=== PATIENT | female | born 2005 | race Two or more races ===

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

== ENCOUNTER 2025-03-04 07:17 | Emergency (ER) | payer MEDICAID, OTHER ==
[~2025-03-04] VITALS: Ht 152.4 cm; Wt 78.5 kg
[2025-03-04 07:27] VITALS: TEMP 98.6
--- NOTE | 2025-03-04 08:12 | ED.PDOC ---
SOB-HPI HPI Comments 19 y.o female presents to the ED for a chief complaint of a productive cough associated with yellow phlegm and SOB that started one week ago. Patient reports when having coughing fits, notices yellow sputum output and described chest discomfort as if her chest was compressed. Additionally, she reports feeling SOB and presented to the ED with SPO2 of 94% RA. When she lays flat, states she begins to wheeze and hears crackling sounds. She also had a cough earlier this week however has resolved. She denies any recent travel outside of the country, sick contact exposure, , fever, leg swelling, fever, chills, nausea, or vomiting. Chief Complaint: Cough Time Seen by MD: 08:08 Primary Care Provider: VICENTE Reviewed notes: Nurses Notes, Medications, Allergies Information Source: Patient Mode of Arrival: Ambulatory Severity: Moderate Timing: Weeks (1) Duration: Since onset Context: At Rest PE Risk Factors: None History of: None Modifying Factors: Nothing Associated Signs and Symptoms: Cough If cough with SOB: Yellow Past Medical History PAST MEDICAL HISTORY: Denies Surgical History: Denies all surgeries IMMIGRATION OFFICER History: No Pertinent IMMIGRATION OFFICER History Family History Family History: Reviewed,noncontributory to illness, Unknown Social History Smoker: Non-Smoker Alcohol: Denies ETOH Use Drugs: Denies Drug Use Lives In: Home Constitutional: denies: chills, diaphoresis, fatigue, fever, malaise, sweats, weakness, others EENTM: reports: throat pain; denies: blurred vision, double vision, ear bleeding, ear discharge, ear drainage, ear pain, ear ringing, eye pain, eye redness, hearing loss, mouth pain, mouth swelling, nasal discharge, nose bleeding, nose congestion, nose pain, photophobia, tearing, throat swelling, voice changes, others Respiratory: reports: cough, SOB at rest, shortness of breath; denies: hemoptysis, orthopnea, SOB with excertion, stridor, wheezing, others Cardiovascular: denies: chest pain, dizzy spells, diaphoresis, Dyspnea on exertion, edema, irregular heart beat, left arm pain, lightheadedness, palpitations, PND, syncope, others Gastrointestinal: denies: abdomen distended, abdominal pain, blood streaked bowels, constipated, diarrhea, dysphagia, difficulty swallowing, hematemesis, melena, nausea, poor appetite, poor fluid intake, rectal bleeding, rectal pain, vomiting, others Genitourinary: denies: abnormal vagina bleeding, burning, dyspareunia, dysuria, flank pain, frequency, hematuria, incontinence, pain, , vagina discharge, urgency, others Neurological: denies: dizziness, fainting, headache, left sided numbness, left sided weakness, numbness, paresthesia, pre-existing deficit, right sided numbness, right sided weakness, seizure, speech problems, tingling, tremors, weakness, others Musculoskeletal: denies: back pain, gout, joint pain, joint swelling, muscle pain, muscle stiffness, neck pain, others Integumetry: denies: bruises, change in color, change in hair/nails, dryness, laceration, lesions, lumps, rash, wounds, others Allergic/Immunocompromised: denies: Difficulty Healing, Frequent Infections, Hives, Itching, others Hematologic/Lymphatic: denies: anemia, blood clots, easy bleeding, easy bruising, swollen glands, others Endocrine: denies: excessive hunger, excessive sweating, excessive thirst, excessive urination, flushing, intolerance to cold, intolerance to heat, unexplained weight gain, unexplained weight loss, others Psychiatric: denies: anxiety, bipolar disorder, depression, hopeless, panic disorder, schizophrenia, sleepless, suicidal, others All Other Systems: Reviewed and Negative Physical Exam General Appearance: Mild Distress, Other (Speaking in short sentences appears to have difficulty breathing. Saturating 94% on room air) HEENT: Normal ENT Inspection, Pharynx Normal, TMs Normal Neck: Full Range of Motion, Non-Tender, Normal, Normal Inspection Respiratory: Decreased Breath Sounds, Respiratory Distress, Wheezing, Other (Mild wheezing to the bases and decreased breath sounds) Cardiovascular: No Edema, No JVD, No Murmur, No Gallop, Normal Peripheral Pulses, Regular Rate/Rhythm Breast Exam: Deferred Gastrointestinal: No Organomegaly, Non Tender, No Pulsatile Mass, Normal Bowel Sounds, Soft Genitalia: Deferred Pelvic: Deferred Rectal: Deferred Extremities: No calf tenderness, Normal capillary refill, Normal inspection, Normal range of motion, Non-tender, No pedal edema Musculoskeletal : Apperance: Normal Neurologic: Alert, patient placement coordinator II-XII nml as Tested, No Motor Deficits, Normal Affect, Normal Mood, No Sensory Deficits Cerebellar Function: Normal Reflexes: Normal Skin: Dry, Normal Color, Warm Lymphatic: No Adenopathy Was a procedure done? Was a procedure done?: No Differential Dx Differential Diagnosis: Asthma, Bronchitis, Pneumonia, Pneumothorax, Pulmonary Embolism, Respiratory Distress, URI X-Ray, Labs, Meds, VS Vital Signs Date Time Temp Pulse Resp B/P (MAP) Pulse Ox O2 Delivery O2 Flow Rate FiO2 03/04/25 11:52 78 16 97 Room Air* 0 21 03/04/25 11:33 107 16 115/64 (81) 94 03/04/25 11:33 107 16 94 Room Air 03/04/25 08:22 18 99 Room Air* 0 21 03/04/25 07:27 98.6 122 18 113/76 94 98.6 Lab Test 03/04/25 08:21 03/04/25 08:13 Range/Units White Blood Count 9.9 4.4-10.8 10^3/uL Red Blood Count 4.81 4.0-5.20 10^6/uL Hemoglobin 13.2 12.2-16.2 g/dL Hematocrit 38.4 36.0-46.0 % Mean Corpuscular Volume 79.8 L 80.0-100.0 fL Mean Corpuscular Hemoglobin 27.4 L 28.0-32.0 pg Mean Corpuscular Hemoglobin Concent 34.4 32.0-36.0 g/dL Red Cell Distribution Width 14.7 H 11.8-14.3 % Platelet Count 323 140-450 10^3/uL Mean Platelet Volume 8.8 6.9-10.8 fL Neutrophils (%) (Auto) 80.5 H 37.0-80.0 % Lymphocytes (%) (Auto) 9.9 L 10.0-50.0 % Monocytes (%) (Auto) 5.2 0.0-12.0 % Eosinophils (%) (Auto) 3.6 0.0-7.0 % Basophils (%) (Auto) 0.8 0.0-2.0 % Neutrophils # (Auto) 8.0 1.6-8.6 10 ^3/uL Lymphocytes # (Auto) 1.0 0.4-5.4 10 ^3/uL Monocytes # (Auto) 0.5 0-1.3 10 ^3/uL Eosinophils # (Auto) 0.4 0-0.8 10 ^3/uL Basophils # (Auto) 0.1 0-0.2 10 ^3/uL Nucleated Red Blood Cells 0.1 % D-Dimer, Quantitative 0.71 H 0.0-0.49 mg/L FEU Sodium Level 139 136-145 mmol/L Potassium Level 3.7 3.5-5.1 mmol/L Chloride Level 102 98-107 mmol/L Carbon Dioxide Level 23 20-31 mmol/L Anion Gap 14 5-15 Blood Urea Nitrogen 6 L 9-23 mg/dL Creatinine 0.74 0.550-1.02 mg/dL Glomerular Filtration Rate Calc 118 >90 mL/min BUN/Creatinine Ratio 8.1 L 10.0-20.0 Serum Glucose 92 74-106 mg/dL Calcium Level 9.3 8.7-10.4 mg/dL Urine Test Negative Negative Current Medications Medications (Trade) Dose Ordered Sig/Aby Route Start Time Stop Time Status Last Admin Albuterol (Ventolin Medneb) 5 mg ONCE ONCE NEB 03/04/25 08:15 03/04/25 08:16 DC 03/04/25 08:21 Ipratropium Reseda (Atrovent Medneb) 0.5 mg ONCE ONCE NEB 03/04/25 08:15 03/04/25 08:16 DC 03/04/25 08:21 Dexamethasone Sodium Phosphate (Decadron Injection) 10 mg ONCE ONCE PO 03/04/25 08:15 03/04/25 08:16 DC 03/04/25 08:57 Ceftriaxone Sodium 50 ml @ 100 mls/hr ONCE ONCE IV 03/04/25 11:15 03/04/25 11:44 DC 03/04/25 11:38 [place] [id number] Ph: [phone] DIAGNOSTIC IMAGING Diagnostic Imaging Report : [id number] Signed PATIENT: ACCT: [id number] UNIT: [id number] : 2005 LOC: ER ROOM / BED: / AGE / SEX: 19 / F ADM STATUS: REG ER SERVICE ORDERING PHYSICIAN: MARIAN ROLDAN MD PROCEDURE(s): CTACH - CT ANGIO CHEST CONTRAST REASON: Rule out PE ORDER NUMBER(s): [id number], ACCESSION NUMBER(s): [id number] CT pulmonary angiogram INDICATION: Rule out PE Technique: Serial axial images were performed through the chest using 3 mm slice thickness and interval following the administration of 100 mL of Omnipaque 350 IV contrast. Multiplanar MIP reconstruction imaging was provided and reviewed at the workstation FINDINGS: Lungs: Patchy reticular nodular densities are seen throughout the right lung with focal area of consolidation in the right upper lobe. Faint infiltrates are also present in the right middle and lower lung zones. There is faint infiltrate in the lingula of the left upper lobe Cardiovascular: Heart size normal without pericardial effusion. No central pulmonary emboli are present. Nodes: There is adenopathy present in the mediastinum and right hilar regions. Small axillary nodes are present. Images of the upper abdomen reveal no bony abnormalities. There is fatty infiltration of the liver. Spleen borderline in size. IMPRESSION: 1. No central pulmonary emboli. 2. Inflammatory process involving primarily the right upper lobe but also aff ecting other lung zones with infiltrates and small right hilar and mediastinal lymph nodes. Computed Tomographic Radiation Dosimetry Report: Total CTDI vol = 16 mGy Total DLP = 519 mGy-cm All CT scans at this medical facility are performed using dose modulation techniques as appropriate to a performed exam including the following: Automated exposure control was utilized; adjustment of the MA and/or KvP according to patient size; and use of iterative reconstruction technique. ATED BY: EMERY IKM MD DICTATED DATE/TIME: 03/04/25 1058 19-year-old female presents here with cough and shortness of breath that began 1 week ago. On my examination she is saturating 94% on room air and tachycardic at 122. She seems to have some trouble breathing in his speaking in short sentences only. She has diminished breath sounds and some wheezing at the bases. At this time she has no leg swelling. She has no risk factors for a PE. She has no unilateral leg swelling, no recent bedrest in the long flights she is not on control pills. However I still have a high suspicion. At this time I have ordered a CBC, BMP, he urine D-dimer as well as a CT angio of the chest to rule out PE. I have written for breathing treatments ipratropium and albuterol as well as dexamethasone p.o.. Chest x-ray has been ordered also. CBC is within normal limits with a normal WBC count. BMP also within normal limits. Urine is negative. D-dimer is elevated. A CT angio of the chest has been done which does not demonstrate PE. However does demonstrate inflammatory process involving the right upper lobe and also other lung zones with infiltrates in the small right hilar and mediastinal lymph nodes. Chest x- ray also consistent with pneumonia. At this time I have also given her Rocephin and azithromycin IV. On re-evaluation patient is breathing much more comfortably. I offered her additional breathing treatments but she refused. At this time I will be discharging her home with azithromycin p.o. and albuterol inhaler. I advised her however if her symptoms worsen or persist she has increased trouble breathing again to please return back to the ER. Patient agreeable. Time of 1ST Reevaluation: 08:07 Reevaluation 1ST: Unchanged Time of 2ND Reevaluation: 12:24 Reevaluation 2ND: Improved Patient Education/Counseling: Diagnosis, Treatment, Prognosis Family Education/Counseling: No Family Present SEPSIS Sepsis Screen Date sepsis recognized/suspect: Mar 04, 2025 Time Sepsis recognized/suspect: 728 Recent Procedure: No On Antibiotic Therapy: No Respiratory Rate >20: No Heart Rate >90: No Temp<36 C (96.8 F) or >38.3 C: No SBP <90 or MAP <65 mmHG: No New Acute Mental Status Change: No Is the patient on CPAP, BIPAP,: No Physician Orders Chest Two Views Routine (03/04/25 07:54) Ct Angio Chest Contrast (03/04/25 08:18) Blood Culture (03/04/25 11:08) Vital Signs Date Time Temp Pulse Resp B/P (MAP) Pulse Ox O2 Delivery O2 Flow Rate FiO2 03/04/25 11:52 78 16 97 Room Air* 0 21 03/04/25 11:33 107 16 115/64 (81) 94 03/04/25 11:33 107 16 94 Room Air 03/04/25 08:22 18 99 Room Air* 0 21 03/04/25 07:27 98.6 122 18 113/76 94 98.6 Laboratory Tests Test 03/04/25 08:21 White Blood Count 9.9 10^3/uL (4.4-10.8) Medications Medications Dose Ordered Sig/Aby Route Start Time Stop Time Status Last Admin Dose Admin Albuterol 5 mg ONCE ONCE NEB 03/04/25 08:15 03/04/25 08:16 DC 03/04/25 08:21 Ceftriaxone Sodium 50 ml @ 100 mls/hr ONCE ONCE IV 03/04/25 11:15 03/04/25 11:44 DC 03/04/25 11:38 Dexamethasone Sodium Phosphate 10 mg ONCE ONCE PO 03/04/25 08:15 03/04/25 08:16 DC 03/04/25 08:57 Ipratropium Reseda 0.5 mg ONCE ONCE NEB 03/04/25 08:15 03/04/25 08:16 DC 03/04/25 08:21 Departure 1 Departure Time of Disposition: 12:24 Impression: Primary Impression: Pneumonia Qualified Codes: J18.9 - Pneumonia, unspecified organism Disposition: HOME / SELF CARE / HOMELESS Condition: Fair Additional Instructions: You have pneumonia today and is very important you take your antibiotics as prescribed. Please use the inhaler to help with breathing. However if you have trouble breathing at home please return back to the ER immediately. If your symptoms worsen or persist. Please return back to the ER immediately. Otherwise follow up with the primary care physician in 2-3 days. e-Prescriptions Albuterol Sulfate (VENTOLIN MDI) 90 Mcg Ih 90 MCG IN Q4HPRN PRN for 5 Days, #1 INH Prov: MARIAN ROLDAN MD 03/04/25 Azithromycin (ZITHROMAX TABLET) 250 Mg Tb 250 MG PO DAILY for 5 Days, #5 TAB Please take 2 tablets on day 1 followed by 1 tablet on days 2-5 Prov: MARIAN ROLDAN MD 03/04/25 Critical Care Note Critical Care Time?: Yes (45 min-critical care time only) Critical care comment: Concern for immediate deterioration given her significant tachycardia of 122 and hypoxia of 94. I was asked to see the patient immediately by nursing staff. Concern for PE and immediate restrained is deterioration. Time spent evaluating the patient, reviewing vital signs, treating the patient, interpreting labs and interpreting imaging studies. Time spent speaking to the patient Stability Stability form required: No Heart Score Heart Score: Heart Score Response (Comments) Value History N/A 0 EKG N/A 0 Age N/A 0 Risk Factors N/A 0 Troponin N/A 0 Total 0 I personally scribed for MARIAN ROLDAN MD ([email or web address]) on 03/04/25 at 08:12. Electronically submitted by Janet Pearl ([facility]). MARIAN ROLDAN MD Mar 04, 2025 08:12
[2025-03-04] MEDS: IPRATROPIUM BROM 0.5 MG/2.5ML INH SOL NEB ONE (08:21)
[2025-03-04] MEDS: ALBUTEROL SULF 2.5 MG/0.5ML(0.5%) NEB SOLN NEB ONE (08:21)
[2025-03-04 08:28] LABS: Hematocrit 38.4 % (36.0-46.0); Hemoglobin 13.2 g/dL (12.2-16.2); Mean Corpuscular Hemoglobin 27.4 pg (28.0-32.0); Mean Corpuscular Volume 79.8 fL (80.0-100.0); Nucleated Red Blood Cells % 0.1 %
--- NOTE | 2025-03-04 08:33 | DVH ---
CLINICAL INFORMATION: Rule out pneumonia. TECHNIQUE: Frontal and lateral chest radiographs were obtained. COMPARISON: None FINDINGS: Lungs: Focal consolidation in the right upper lobe, likely infectious or inflammatory in nature, including pneumonia. Left lung is clear. Cardiac: Heart size is within normal limits. Pulmonary vasculature: Unremarkable Mediastinum/kristin: Within normal limits. Bones: No evidence of acute osseous abnormality. Other: No other significant finding. IMPRESSION: Focal consolidation in the right upper lobe, likely infectious or inflammatory in nature, including pneumonia in the appropriate clinical setting.
[2025-03-04 08:41] LABS: Chloride 102 mmol/L (98-107); Potassium 3.7 mmol/L (3.5-5.1); Sodium 139 mmol/L (136-145)
[2025-03-04 08:42] LABS: Anion Gap 14 (5-15); Carbon Dioxide 23 mmol/L (20-31)
[2025-03-04 08:43] LABS: Calcium 9.3 mg/dL (8.7-10.4)
[2025-03-04 08:47] LABS: Glucose 92 mg/dL (74-106)
[2025-03-04 08:48] LABS: BUN/Creatinine Ratio 8.1 (10.0-20.0)
[2025-03-04 08:49] LABS: Blood Urea Nitrogen 6 mg/dL (9-23)
[2025-03-04] MEDS: IOHEXOL 350 MG/ML 100ML IJ ONE (09:39)
--- NOTE | 2025-03-04 11:01 | DVH ---
CT pulmonary angiogram INDICATION: Rule out PE Technique: Serial axial images were performed through the chest using 3 mm slice thickness and interval following the administration of 100 mL of Omnipaque 350 IV contrast. Multiplanar MIP reconstruction imaging was provided and reviewed at the workstation FINDINGS: Lungs: Patchy reticular nodular densities are seen throughout the right lung with focal area of consolidation in the right upper lobe. Faint infiltrates are also present in the right middle and lower lung zones. There is faint infiltrate in the lingula of the left upper lobe Cardiovascular: Heart size normal without pericardial effusion. No central pulmonary emboli are present. Nodes: There is adenopathy present in the mediastinum and right hilar regions. Small axillary nodes are present. Images of the upper abdomen reveal no bony abnormalities. There is fatty infiltration of the liver. Spleen borderline in size. IMPRESSION: 1. No central pulmonary emboli. 2. Inflammatory process involving primarily the right upper lobe but also affecting other lung zones with infiltrates and small right hilar and mediastinal lymph nodes. Computed Tomographic Radiation Dosimetry Report: Total CTDI vol = 16 mGy Total DLP = 519 mGy-cm All CT scans at this medical facility are performed using dose modulation techniques as appropriate to a performed exam including the following: Automated exposure control was utilized; adjustment of the MA and/or KvP according to patient size; and use of iterative reconstruction technique.
[2025-03-04 11:33] VITALS: BP 115/64
[2025-03-04 11:52] VITALS: PULSE 78; RESP 16; O2SAT 97
[2025-03-04] MEDS ORDERED: ALBUAER3 IN (12:27)
[2025-03-04] MEDS ORDERED: AZIT-185 PO (12:27)
== END 2025-03-04 13:18 | disposition home or self-care (01) ==
LOC: ER 07:17
DX: J18.9 Pneumonia, unspecified organism (principal); Z79.899 Other long term (current) drug therapy
CPT/HCPCS: 36415; 71046; 71275; 80048; 81025; 85025; 85379; 87040; 94640; 96365; 96366; 99285; J0696; J1100; Q9967